=== PATIENT | female | born 1990 | race Caucasian/White ===

== ENCOUNTER 2017-11-28 11:58 | Emergency (ER) | payer OTHER ==
[~2017-11-28] VITALS: Ht 157.5 cm; Wt 70.8 kg
[~2017-11-28 11:58] MED LIST: FOLIC ACID1 MG; INTESTINEX680 MG PO; LEVSIN/SL0.125 MG PO; PAXIL CR37.5 MG; ZANTAC150 M1
== END 2017-11-28 20:44 | disposition home or self-care (01) ==
LOC: ER 11:58
DX: R10.11 Right upper quadrant pain (principal); K62.5 Hemorrhage of anus and rectum